=== PATIENT | male | born 1950 | race Hispanic/Latino ===

== ENCOUNTER 2018-03-14 14:09 | Day surgery (SDC) | payer MEDICARE ==
[2018-03-14 14:35] VITALS: BP 155/78
[2018-03-14 15:18] LABS: BASOPHILS % (AUTO) 0.9 % (0.0-5.0); EOSINOPHILS % (AUTO) 2.9 % (0.0-8.0); HEMATOCRIT 36.6 % (42-54); LYMPHOCYTES % (AUTO) 20.6 % (21.0-51.0); MEAN CORPUSCULAR HEMOGLOBIN 30.6 pg (27.0-33.0); MEAN CORPUSCULAR HGB CONC 33.8 g/dL (32.0-36.0); MEAN CORPUSCULAR VOLUME 90.5 fL (79-99); NEUTROPHILS % (AUTO) 66.6 % (40.0-77.0); PLATELET COUNT (AUTO) 108 K/uL (130-400); RED BLOOD CELL COUNT(AUTO) 4.04 MIL/uL (4.50-6.20); RED CELL DISTRIBUTION WIDTH 15.6 % (11.0-15.5); WHITE BLOOD COUNT (AUTO) 3.8 K/uL (4.8-10.8)
[2018-03-14 15:32] LABS: ALBUMIN 3.8 g/dL (3.5-5.0); BILIRUBIN,TOTAL 0.4 mg/dL (0.2-1.0); POTASSIUM 4.3 mmol/L (3.5-5.1); TOTAL PROTEIN, SERUM 7.4 g/dL (6.0-8.3)
[2018-03-14 15:37] LABS: CREATININE 11.2 mg/dL (0.5-1.5)
[2018-03-14 15:38] LABS: INR 0.95 (0.85-1.15)
[2018-03-14] MEDS ORDERED: HEPARIN SODIUM 1000UNIT/ML 10ML VIAL ONE (15:40)
[2018-03-14] MEDS ORDERED: SODIUM BICARB 50MEQ 50ML VIAL ONE (15:40)
[2018-03-14] MEDS ORDERED: ISOVUE-300 100 ML VIAL IV ONE (15:40)
[2018-03-14] MEDS ORDERED: LIDOCAINE HCL 2% 20ML ONE (15:40)
[2018-03-14] MEDS ORDERED: SODIUM CHLORIDE 0.9% 1000ML 1,000 ML IV ONE (15:58)
[2018-03-14] MEDS ORDERED: HYDRALAZINE HCL 20 MG/ML VIAL IV SCH (17:30)
[2018-03-14 17:35] VITALS: BP 179/64
[2018-03-14 17:50] VITALS: BP 167/72
[2018-03-14 18:05] VITALS: BP 168/77
[2018-03-14 18:15] VITALS: BP 165/69
== END 2018-03-14 18:35 | disposition home or self-care (01) ==
LOC: CLH 14:09 → DAH 14:09 → CLH 18:35
PROVIDERS: ATTEND Internal Medicine Nephrology
DX: T82.398A Other mechanical complication of other vascular grafts, initial encounter (principal); I12.0 Hypertensive chronic kidney disease with stage 5 chronic kidney disease or end stage renal disease; E11.22 Type 2 diabetes mellitus with diabetic chronic kidney disease; N18.6 End stage renal disease; E11.51 Type 2 diabetes mellitus with diabetic peripheral angiopathy without gangrene
CPT/HCPCS: 36415; 36905; 80053; 82948; 85025; 85610; A4606; C1725 ×2; C1757; C1769; C1894 ×2; J1644; J3490 ×2; J7030; Q9967

== ENCOUNTER 2018-06-27 09:07 | Emergency (ER) | payer MEDICARE ==
[2018-06-27 09:57] LABS: ALBUMIN 3.9 g/dL (3.5-5.0); BILIRUBIN,TOTAL 0.4 mg/dL (0.2-1.0); TOTAL PROTEIN, SERUM 8.1 g/dL (6.0-8.3)
[2018-06-27 09:59] LABS: CREATININE 12.1 mg/dL (0.5-1.5)
[2018-06-27 10:04] LABS: INR 0.95 (0.85-1.15); PARTIAL THROMBOPLASTIN TIME 27.4 SEC (26.3-35.5)
[2018-06-27] MEDS ORDERED: SODIUM POLYSTYRENE SULFONATE 15 GM/60 ML ML ONE (11:29)
[2018-06-27] MEDS ORDERED: CALCIUM GLUCONATE 1 GM/10 ML VIAL IV ONE (11:29)
[2018-06-27] MEDS ORDERED: SODIUM CHLORIDE 0.9% 50 ML IV ONE (11:30)
[2018-06-27] MEDS ORDERED: IODIXANOL 320 MG/ML 100 ML VIAL ONE (13:27)
[2018-06-27] MEDS ORDERED: HEPARIN SODIUM 1000UNIT/ML 10ML VIAL ONE (13:27)
[2018-06-27] MEDS ORDERED: LIDOCAINE HCL 1% MDV 50ML VIAL ONE (13:27)
[2018-06-27] MEDS ORDERED: FENTANYL CITRATE PF 50 MCG/1 ML 2ML VIAL ONE (14:07)
== END 2018-06-27 15:29 | disposition home or self-care (01) ==
LOC: EDH 09:07
DX: T82.49XA Other complication of vascular dialysis catheter, initial encounter (principal); N18.6 End stage renal disease; Y84.8 Other medical procedures as the cause of abnormal reaction of the patient, or of later complication, without mention of misadventure at the time of the procedure; Y92.89 Other specified places as the place of occurrence of the external cause
CPT/HCPCS: 36415; 36905; 80053; 84132; 85610; 85730; 96365; 99284; C1725; C1757 ×2; C1769 ×2; C1894 ×2; J0610; J1644 ×2; J3010; J3490; Q9967

== ENCOUNTER 2018-07-18 09:58 | Day surgery (SDC) | payer MEDICARE ==
[2018-07-18 10:52] LABS: BASOPHILS % (AUTO) 0.9 % (0.0-5.0); EOSINOPHILS % (AUTO) 2.5 % (0.0-8.0); HEMATOCRIT 31.7 % (42-54); LYMPHOCYTES % (AUTO) 19.8 % (21.0-51.0); MEAN CORPUSCULAR HEMOGLOBIN 31.8 pg (27.0-33.0); MEAN CORPUSCULAR HGB CONC 34.3 g/dL (32.0-36.0); MEAN CORPUSCULAR VOLUME 92.7 fL (79-99); NEUTROPHILS % (AUTO) 68.8 % (40.0-77.0); PLATELET COUNT (AUTO) 92 K/uL (130-400); RED BLOOD CELL COUNT(AUTO) 3.42 MIL/uL (4.50-6.20); RED CELL DISTRIBUTION WIDTH 14.1 % (11.0-15.5); WHITE BLOOD COUNT (AUTO) 3.8 K/uL (4.8-10.8)
[2018-07-18 11:00] LABS: PARTIAL THROMBOPLASTIN TIME 26.1 SEC (26.3-35.5); PROTHROMBIN TIME 10.5 SEC (9.6-11.6)
[2018-07-18 11:06] LABS: ALBUMIN 3.9 g/dL (3.5-5.0); BILIRUBIN,TOTAL 0.3 mg/dL (0.2-1.0); POTASSIUM 5.5 mmol/L (3.5-5.1); TOTAL PROTEIN, SERUM 7.5 g/dL (6.0-8.3)
[2018-07-18 11:08] LABS: CREATININE 12.4 mg/dL (0.5-1.5)
[2018-07-18] MEDS ORDERED: AMLO5TAB4 PO (13:47)
[2018-07-18] MEDS ORDERED: LOSA50TA25 PO (13:49)
[2018-07-18] MEDS ORDERED: CALC667C10 PO (13:49)
[2018-07-18] MEDS ORDERED: FOLI1TAB15 PO (13:49)
[2018-07-18] MEDS ORDERED: HEPARIN SODIUM 1000UNIT/ML 10ML VIAL ONE (16:17)
[2018-07-18] MEDS ORDERED: LIDOCAINE HCL 1% MDV 50ML VIAL ONE (16:17)
[2018-07-18] MEDS ORDERED: IOHEXOL 350 MG/ML 100ML INFUS..BTL IV ONE (16:39)
== END 2018-07-18 18:15 | disposition home or self-care (01) ==
LOC: EDH 09:58 → EDSTATUS 12:12 → DAH 12:13 → CLH 12:13
PROVIDERS: ATTEND Internal Medicine Nephrology
DX: T82.399A Other mechanical complication of unspecified vascular grafts, initial encounter (principal); I12.0 Hypertensive chronic kidney disease with stage 5 chronic kidney disease or end stage renal disease; E11.22 Type 2 diabetes mellitus with diabetic chronic kidney disease; N18.6 End stage renal disease
CPT/HCPCS: 36415; 36905; 80053; 85025; 85610; 85730; 93005; C1725; C1757; C1769 ×2; C1894 ×2; J1644 ×2; J3490; Q9965; Q9967

== ENCOUNTER 2021-06-11 09:17 | Inpatient (IN) | payer MEDICARE ==
[2021-06-11] VITALS (14 sets, daily range): BP systolic 127–175; BP diastolic 33–79
[~2021-06-11] VITALS: Ht 175.3 cm; Wt 61.7 kg
[~2021-06-11 09:17] MED LIST: AMLO5TAB4 PO; CALC667C10 PO; FOLI1TAB15 PO; LOSA50TA64 PO
[2021-06-11 09:52] LABS: BASOPHILS % (AUTO) 0.2 % (0.0-5.0); EOSINOPHILS % (AUTO) 2.1 % (0.0-8.0); HEMATOCRIT 37.4 % (42-54); LYMPHOCYTES % (AUTO) 3.4 % (21.0-51.0); MEAN CORPUSCULAR HEMOGLOBIN 31.7 pg (27.0-33.0); MEAN CORPUSCULAR HGB CONC 33.2 g/dL (32.0-36.0); MEAN CORPUSCULAR VOLUME 95.7 fL (79-99); MONOCYTES % (AUTO) 7.9 % (3.0-13.0); NEUTROPHILS % (AUTO) 79.5 % (40.0-77.0); PLATELET COUNT (AUTO) 73 K/uL (130-400); RED BLOOD CELL COUNT(AUTO) 3.91 MIL/uL (4.50-6.20); RED CELL DISTRIBUTION WIDTH 13.6 % (11.0-15.5); WHITE BLOOD COUNT (AUTO) 11.3 K/uL (4.8-10.8)
[2021-06-11] MEDS ORDERED: 0.9% NACL 500ML IV.SOLN 500 ML IV ONE (10:00)
[2021-06-11 10:06] LABS: INR 1.13 (0.85-1.15); PROTHROMBIN TIME 12.2 SEC (9.6-11.6)
[2021-06-11 10:07] LABS: PARTIAL THROMBOPLASTIN TIME 29.4 SEC (26.3-35.5)
[2021-06-11] MEDS: 0.9% NACL 500ML IV.SOLN 500 ML IV SCH ×2 (10:16→10:52)
[2021-06-11 10:49] LABS: ALBUMIN 3.7 g/dL (3.5-5.0); BILIRUBIN,TOTAL 1.1 mg/dL (0.2-1.0); POTASSIUM 4.8 mmol/L (3.5-5.1); TOTAL PROTEIN, SERUM 8.3 g/dL (6.0-8.3)
[2021-06-11 10:56] LABS: CREATININE 9.2 mg/dL (0.5-1.5)
[2021-06-11] MEDS ORDERED: ASPIRIN 81MG CHEW TAB PO SCH (12:30)
[2021-06-11] MEDS ORDERED: PHENYLEPHRINE HCL 10 MG/ML 1ML VIAL IV ONE (12:32)
[2021-06-11] MEDS ORDERED: MAGNESIUM SULFATE 1 GM/2 ML VIAL IM ONE (12:32)
[2021-06-11] MEDS ORDERED: MANNITOL 25% 50ML VIAL IV ONE (12:32)
[2021-06-11] MEDS ORDERED: SODIUM BICARB 8.4% 50ML SYRINGE IVP ONE (12:32)
[2021-06-11] MEDS ORDERED: CACL 1GM SYG IVP ONE (12:32)
[2021-06-11] MEDS ORDERED: AMINOCAPROIC ACID 5,000MG VIAL IV ONE (12:32)
[2021-06-11] MEDS ORDERED: HEPARIN 10,000 UNIT/10ML (1,000 UNIT/ML) VIAL IV ONE (12:32)
[2021-06-11] MEDS ORDERED: AMLODIPINE 5 MG TAB PO ONE (15:30)
[2021-06-11] MEDS ORDERED: CLOPIDOGREL 300MG TAB PO SCH (16:30)
[2021-06-11] MEDS ORDERED: ATOR10 PO (16:35)
[2021-06-11] MEDS ORDERED: SEVE800T27 PO (16:35)
[2021-06-11] MEDS ORDERED: ISOS30TA92 PO (16:35)
[2021-06-11] MEDS ORDERED: CARV25TA PO (16:35)
[2021-06-11] MEDS ORDERED: PHARMACY COMMUNICATION MISC SCH (17:00)
[2021-06-11] MEDS ORDERED: CEFTRIAXONE 1G VIAL IVP SCH (17:30)
[2021-06-11] MEDS ORDERED: FOLI0.8T3 PO (22:31)
[2021-06-11] MEDS ORDERED: LOSA50TA64 PO (22:31)
[2021-06-12] MEDS ORDERED: SEVE800T27 PO (01:00)
[2021-06-12 04:00] VITALS: BP 131/68
[2021-06-12 08:00] VITALS: BP 143/64
[2021-06-12] MEDS: AMLODIPINE 5 MG TAB PO SCH (08:51)
[2021-06-12] MEDS: CLOPIDOGREL 75MG TAB PO SCH (08:52)
[2021-06-12] MEDS: CEFTRIAXONE 1G VIAL IVP SCH (08:52)
[2021-06-12 09:20] LABS: BASOPHILS % (AUTO) 0.2 % (0.0-5.0); EOSINOPHILS % (AUTO) 0.5 % (0.0-8.0); HEMATOCRIT 37.4 % (42-54); LYMPHOCYTES % (AUTO) 2.4 % (21.0-51.0); MEAN CORPUSCULAR HEMOGLOBIN 31.2 pg (27.0-33.0); MEAN CORPUSCULAR HGB CONC 33.2 g/dL (32.0-36.0); MEAN CORPUSCULAR VOLUME 94.2 fL (79-99); MONOCYTES % (AUTO) 5.2 % (3.0-13.0); NEUTROPHILS % (AUTO) 89.9 % (40.0-77.0); PLATELET COUNT (AUTO) 86 K/uL (130-400); RED BLOOD CELL COUNT(AUTO) 3.97 MIL/uL (4.50-6.20); RED CELL DISTRIBUTION WIDTH 13.4 % (11.0-15.5); WHITE BLOOD COUNT (AUTO) 10.3 K/uL (4.8-10.8)
[2021-06-12 09:36] LABS: ALBUMIN 2.7 g/dL (3.5-5.0); BILIRUBIN,TOTAL 0.5 mg/dL (0.2-1.0); MAGNESIUM 2.6 mg/dL (1.80-2.40); POTASSIUM 4.8 mmol/L (3.5-5.1); TOTAL PROTEIN, SERUM 6.9 g/dL (6.0-8.3)
[2021-06-12 09:38] LABS: CREATININE 10.5 mg/dL (0.5-1.5)
[2021-06-12] MEDS: ASPIRIN 81 MG EC TAB PO SCH (10:12)
[2021-06-12 12:00] VITALS: BP 110/67
[2021-06-12] MEDS ORDERED: LOSARTAN 25 MG TABLET PO SCH (12:22)
[2021-06-12] MEDS: ENOXAPARIN SODIUM 60 MG/0.6 ML SQ SCH (12:48)
[2021-06-12] MEDS: CARVEDILOL 3.125 MG TABLET PO SCH ×2 (12:48→20:00)
[2021-06-12 16:00] VITALS: BP 138/58
[2021-06-12 20:00] VITALS: BP 102/43
[2021-06-13] VITALS (7 sets, daily range): BP systolic 100–151; BP diastolic 54–106
[2021-06-13 04:04] LABS: HEMATOCRIT 34.2 % (42-54); MEAN CORPUSCULAR HEMOGLOBIN 31.2 pg (27.0-33.0); MEAN CORPUSCULAR HGB CONC 33.3 g/dL (32.0-36.0); MEAN CORPUSCULAR VOLUME 93.7 fL (79-99); PLATELET COUNT (AUTO) 91 K/uL (130-400); RED BLOOD CELL COUNT(AUTO) 3.65 MIL/uL (4.50-6.20); RED CELL DISTRIBUTION WIDTH 13.3 % (11.0-15.5); WHITE BLOOD COUNT (AUTO) 10.6 K/uL (4.8-10.8)
[2021-06-13 04:21] LABS: ALBUMIN 2.8 g/dL (3.5-5.0); BILIRUBIN,TOTAL 0.5 mg/dL (0.2-1.0); PHOSPHORUS 4.8 mg/dL (2.5-4.9); POTASSIUM 4.7 mmol/L (3.5-5.1); TOTAL PROTEIN, SERUM 6.8 g/dL (6.0-8.3)
[2021-06-13 04:29] LABS: BAND NEUTROPHILS % (MANUAL) 1 % (0-2); MONOCYTES % (MANUAL) 2 % (2-9); SEGMENTED NEUTROPHILS % 97 % (40-70)
[2021-06-13 04:30] LABS: MAN.DIFF COMMENT-IMPRESSION MANUAL DIFFERENTIAL
[2021-06-13 04:51] LABS: CREATININE 11.2 mg/dL (0.5-1.5)
[2021-06-13] MEDS ORDERED: ATORVASTATIN 20 MG TABLET PO SCH (09:00)
[2021-06-13] MEDS ORDERED: CARVEDILOL 3.125 MG TABLET PO SCH (09:00)
[2021-06-13] MEDS ORDERED: REGADENOSON 0.4 MG/5 ML PF SYG IVP SCH (10:00)
[2021-06-13] MEDS: CEFTRIAXONE 1G VIAL IVP SCH (13:23)
[2021-06-13] MEDS: ENOXAPARIN SODIUM 60 MG/0.6 ML SQ SCH (13:25)
[2021-06-13] MEDS: AMLODIPINE 5 MG TAB PO SCH (13:27)
[2021-06-13] MEDS: LOSARTAN 25 MG TABLET PO SCH (13:28)
[2021-06-13] MEDS: ISOSORBIDE MONO 30MG SR TAB PO SCH (13:28)
[2021-06-13] MEDS: ASPIRIN 81 MG EC TAB PO SCH (13:28)
[2021-06-13] MEDS: CLOPIDOGREL 75MG TAB PO SCH (13:28)
[2021-06-13] MEDS ORDERED: CARVEDILOL 25 MG TABLET PO SCH (14:00)
[2021-06-13] MEDS: CARVEDILOL 25 MG TABLET PO SCH (19:37)
[2021-06-14] VITALS (18 sets, daily range): BP systolic 107–159; BP diastolic 44–99
[2021-06-14] MEDS ORDERED: MORPHINE 2 MG SYG ONE (03:24)
[2021-06-14] MEDS ORDERED: MORPHINE 2 MG SYG IVP ONE (03:30)
[2021-06-14 04:13] LABS: HEMATOCRIT 31.3 % (42-54); MEAN CORPUSCULAR HGB CONC 33.2 g/dL (32.0-36.0); MEAN CORPUSCULAR VOLUME 93.4 fL (79-99); PLATELET COUNT (AUTO) 97 K/uL (130-400); RED BLOOD CELL COUNT(AUTO) 3.35 MIL/uL (4.50-6.20); RED CELL DISTRIBUTION WIDTH 13.4 % (11.0-15.5); WHITE BLOOD COUNT (AUTO) 9.7 K/uL (4.8-10.8)
[2021-06-14 04:25] LABS: ALBUMIN 2.7 g/dL (3.5-5.0); BILIRUBIN,TOTAL 0.5 mg/dL (0.2-1.0); POTASSIUM 4.8 mmol/L (3.5-5.1); TOTAL PROTEIN, SERUM 6.6 g/dL (6.0-8.3)
[2021-06-14 04:27] LABS: CREATININE 12.9 mg/dL (0.5-1.5)
[2021-06-14 05:36] LABS: BAND NEUTROPHILS % (MANUAL) 1 % (0-2); EOSINOPHILS % (MANUAL) 1 % (1-6); LYMPHOCYTES % (MANUAL) 1 % (22-44); MAN.DIFF COMMENT-IMPRESSION MANUAL DIFFERENTIAL; MONOCYTES % (MANUAL) 4 % (2-9); SEGMENTED NEUTROPHILS % 93 % (40-70)
[2021-06-14] MEDS ORDERED: 0.9% NACL 500ML IV.SOLN 500 ML IV SCH (08:00)
[2021-06-14] MEDS: CLOPIDOGREL 75MG TAB PO SCH (08:28)
[2021-06-14] MEDS: ASPIRIN 81 MG EC TAB PO SCH (08:28)
[2021-06-14] MEDS: ISOSORBIDE MONO 30MG SR TAB PO SCH (08:28)
[2021-06-14] MEDS: AMLODIPINE 5 MG TAB PO SCH (08:28)
[2021-06-14] MEDS: LOSARTAN 25 MG TABLET PO SCH (08:30)
[2021-06-14] MEDS: CARVEDILOL 25 MG TABLET PO SCH ×2 (08:30→19:54)
[2021-06-14] MEDS: CEFTRIAXONE 1G VIAL IVP SCH (08:30)
[2021-06-14] MEDS: ENOXAPARIN SODIUM 60 MG/0.6 ML SQ SCH (08:31)
[2021-06-14] MEDS ORDERED: HEPARIN 5,000 UNIT VIAL SQ PRN (15:30)
[2021-06-14] MEDS: 0.9%NACL 1000ML 1,000 ML IV PRN (15:51)
[2021-06-14] MEDS: ATORVASTATIN 20 MG TABLET PO SCH (19:54)
[2021-06-15] VITALS (12 sets, daily range): BP systolic 96–154; BP diastolic 49–77
[2021-06-15] MEDS: TRAZODONE HCL 50 MG TAB ONE ×2 (00:20→00:22)
[2021-06-15] MEDS ORDERED: TRAZODONE HCL 50 MG TAB PO ONE (00:30)
[2021-06-15 04:02] LABS: BASOPHILS % (AUTO) 0.2 % (0.0-5.0); EOSINOPHILS % (AUTO) 1.3 % (0.0-8.0); HEMATOCRIT 32.6 % (42-54); LYMPHOCYTES % (AUTO) 3.3 % (21.0-51.0); MEAN CORPUSCULAR HEMOGLOBIN 30.9 pg (27.0-33.0); MEAN CORPUSCULAR HGB CONC 33.1 g/dL (32.0-36.0); MEAN CORPUSCULAR VOLUME 93.1 fL (79-99); MONOCYTES % (AUTO) 6.3 % (3.0-13.0); NEUTROPHILS % (AUTO) 88.1 % (40.0-77.0); PLATELET COUNT (AUTO) 109 K/uL (130-400); RED CELL DISTRIBUTION WIDTH 13.3 % (11.0-15.5); WHITE BLOOD COUNT (AUTO) 9.2 K/uL (4.8-10.8)
[2021-06-15 04:11] LABS: INR 1.12 (0.85-1.15); PROTHROMBIN TIME 12.1 SEC (9.6-11.6)
[2021-06-15 04:22] LABS: PHOSPHORUS 4.3 mg/dL (2.5-4.9); POTASSIUM 4.2 mmol/L (3.5-5.1)
[2021-06-15 04:51] LABS: CREATININE 8.2 mg/dL (0.5-1.5)
[2021-06-15] MEDS: ASPIRIN 81 MG EC TAB PO SCH ×2 (09:00→16:16)
[2021-06-15] MEDS: ENOXAPARIN SODIUM 60 MG/0.6 ML SQ SCH (09:00)
[2021-06-15] MEDS: CLOPIDOGREL 75MG TAB PO SCH (09:00)
[2021-06-15] MEDS: AMLODIPINE 5 MG TAB PO SCH ×2 (09:00→16:15)
[2021-06-15] MEDS: ISOSORBIDE MONO 30MG SR TAB PO SCH ×2 (09:00→16:16)
[2021-06-15] MEDS: LOSARTAN 25 MG TABLET PO SCH ×2 (09:00→16:16)
[2021-06-15] MEDS: CEFTRIAXONE 1G VIAL IVP SCH (09:48)
[2021-06-15] MEDS: CARVEDILOL 25 MG TABLET PO SCH ×2 (09:49→20:18)
[2021-06-15] MEDS ORDERED: LIDOCAINE HCL 400MG/20ML VIAL ONE (10:32)
[2021-06-15] MEDS ORDERED: IOHEXOL-350 50ML VIAL IV ONE (10:32)
[2021-06-15] MEDS ORDERED: IOHEXOL 350 MG/ML 100ML INFUS..BTL IV ONE (10:32)
[2021-06-15] MEDS ORDERED: MORPHINE 4 MG SYG ONE (10:59)
[2021-06-15] MEDS ORDERED: HEPARIN 10,000 UNIT/10ML (1,000 UNIT/ML) VIAL ONE (11:02)
[2021-06-15] MEDS ORDERED: ONDANSETRON 4MG INJ ONE (11:07)
[2021-06-15] MEDS: ATORVASTATIN 20 MG TABLET PO SCH (20:18)
[2021-06-16] VITALS (19 sets, daily range): BP systolic 118–157; BP diastolic 46–70
[2021-06-16 04:51] LABS: HEMATOCRIT 34.4 % (42-54); MEAN CORPUSCULAR HEMOGLOBIN 30.9 pg (27.0-33.0); MEAN CORPUSCULAR HGB CONC 33.1 g/dL (32.0-36.0); MEAN CORPUSCULAR VOLUME 93.2 fL (79-99); PLATELET COUNT (AUTO) 119 K/uL (130-400); RED BLOOD CELL COUNT(AUTO) 3.69 MIL/uL (4.50-6.20); RED CELL DISTRIBUTION WIDTH 13.3 % (11.0-15.5); WHITE BLOOD COUNT (AUTO) 8.9 K/uL (4.8-10.8)
[2021-06-16 05:07] LABS: POTASSIUM 4.7 mmol/L (3.5-5.1)
[2021-06-16 05:08] LABS: PHOSPHORUS 6.8 mg/dL (2.5-4.9)
[2021-06-16 05:16] LABS: CREATININE 10.3 mg/dL (0.5-1.5)
[2021-06-16 05:52] LABS: BAND NEUTROPHILS % (MANUAL) 3 % (0-2); BASOPHILS % (MANUAL) 1 % (0-2); LYMPHOCYTES % (MANUAL) 4 % (22-44); MAN.DIFF COMMENT-IMPRESSION MANUAL DIFFERENTIAL; MONOCYTES % (MANUAL) 4 % (2-9); SEGMENTED NEUTROPHILS % 88 % (40-70)
[2021-06-16 06:12] LABS: HEPATITIS Bs ANTIGEN SCREEN P Negative (Negative)
[2021-06-16] MEDS: ENOXAPARIN SODIUM 30 MG/0.3 ML SQ SCH (09:00)
[2021-06-16] MEDS: CARVEDILOL 25 MG TABLET PO SCH ×2 (09:00→20:26)
[2021-06-16] MEDS: ATORVASTATIN 20 MG TABLET PO SCH (20:23)
[2021-06-17] VITALS: BP 137/63
[2021-06-17 04:00] VITALS: BP 159/70
[2021-06-17 07:08] LABS: POTASSIUM 4.4 mmol/L (3.5-5.1)
[2021-06-17 07:15] LABS: CREATININE 7.9 mg/dL (0.5-1.5)
[2021-06-17 07:40] VITALS: BP 153/74
[2021-06-17] MEDS: AMLODIPINE 5 MG TAB PO SCH (08:57)
[2021-06-17] MEDS: ASPIRIN 81 MG EC TAB PO SCH (08:57)
[2021-06-17] MEDS: LOSARTAN 25 MG TABLET PO SCH (08:58)
[2021-06-17] MEDS: CARVEDILOL 25 MG TABLET PO SCH ×2 (08:58→22:09)
[2021-06-17] MEDS: ISOSORBIDE MONO 30MG SR TAB PO SCH (08:58)
[2021-06-17] MEDS: ENOXAPARIN SODIUM 30 MG/0.3 ML SQ SCH (08:59)
[2021-06-17 12:16] VITALS: BP 138/68
[2021-06-17 16:56] VITALS: BP 130/77
[2021-06-17 20:00] VITALS: BP 133/68
[2021-06-17] MEDS: ATORVASTATIN 20 MG TABLET PO SCH (22:09)
[2021-06-18] VITALS (7 sets, daily range): BP systolic 125–150; BP diastolic 53–108
[2021-06-18 04:32] LABS: HEMATOCRIT 31.8 % (42-54); MEAN CORPUSCULAR HEMOGLOBIN 31.1 pg (27.0-33.0); MEAN CORPUSCULAR HGB CONC 33.3 g/dL (32.0-36.0); MEAN CORPUSCULAR VOLUME 93.3 fL (79-99); PLATELET COUNT (AUTO) 122 K/uL (130-400); RED BLOOD CELL COUNT(AUTO) 3.41 MIL/uL (4.50-6.20); RED CELL DISTRIBUTION WIDTH 13.2 % (11.0-15.5); WHITE BLOOD COUNT (AUTO) 10.6 K/uL (4.8-10.8)
[2021-06-18 04:55] LABS: POTASSIUM 4.2 mmol/L (3.5-5.1)
[2021-06-18 05:11] LABS: CREATININE 9.5 mg/dL (0.5-1.5); LYMPHOCYTES % (MANUAL) 13 % (22-44); MAN.DIFF COMMENT-IMPRESSION MANUAL DIFFERENTIAL; MONOCYTES % (MANUAL) 5 % (2-9); SEGMENTED NEUTROPHILS % 82 % (40-70)
[2021-06-18] MEDS: LOSARTAN 25 MG TABLET PO SCH (08:53)
[2021-06-18] MEDS: ASPIRIN 81 MG EC TAB PO SCH (08:53)
[2021-06-18] MEDS: CARVEDILOL 25 MG TABLET PO SCH ×2 (08:54→22:12)
[2021-06-18] MEDS: ENOXAPARIN SODIUM 30 MG/0.3 ML SQ SCH (08:54)
[2021-06-18] MEDS: ISOSORBIDE MONO 30MG SR TAB PO SCH (08:54)
[2021-06-18] MEDS: AMLODIPINE 5 MG TAB PO SCH (08:54)
[2021-06-18] MEDS: ATORVASTATIN 20 MG TABLET PO SCH (22:00)
[2021-06-19] VITALS (17 sets, daily range): BP systolic 119–176; BP diastolic 48–84
[2021-06-19 04:02] LABS: BASOPHILS % (AUTO) 0.2 % (0.0-5.0); EOSINOPHILS % (AUTO) 0.9 % (0.0-8.0); HEMATOCRIT 30.7 % (42-54); LYMPHOCYTES % (AUTO) 3.4 % (21.0-51.0); MEAN CORPUSCULAR HEMOGLOBIN 31.5 pg (27.0-33.0); MEAN CORPUSCULAR HGB CONC 33.9 g/dL (32.0-36.0); MONOCYTES % (AUTO) 5.2 % (3.0-13.0); NEUTROPHILS % (AUTO) 89.5 % (40.0-77.0); PLATELET COUNT (AUTO) 126 K/uL (130-400); RED CELL DISTRIBUTION WIDTH 13.2 % (11.0-15.5); WHITE BLOOD COUNT (AUTO) 11.4 K/uL (4.8-10.8)
[2021-06-19 04:16] LABS: POTASSIUM 4.7 mmol/L (3.5-5.1)
[2021-06-19 04:31] LABS: INR 1.16 (0.85-1.15); PROTHROMBIN TIME 12.5 SEC (9.6-11.6)
[2021-06-19 04:33] LABS: PARTIAL THROMBOPLASTIN TIME 34.8 SEC (26.3-35.5)
[2021-06-19] MEDS: ISOSORBIDE MONO 30MG SR TAB PO SCH (09:00)
[2021-06-19] MEDS: AMLODIPINE 5 MG TAB PO SCH (09:00)
[2021-06-19] MEDS: ASPIRIN 81 MG EC TAB PO SCH (09:00)
[2021-06-19] MEDS: LOSARTAN 25 MG TABLET PO SCH (09:00)
[2021-06-19] MEDS: CARVEDILOL 25 MG TABLET PO SCH (09:16)
[2021-06-19] MEDS ORDERED: CEFAZOLIN SODIUM 1 GM VIAL ONE ×2 (09:37→17:01)
[2021-06-19] MEDS ORDERED: PAPAVERINE HCL 30 MG/ML 2ML VIAL ONE (09:38)
[2021-06-19] MEDS ORDERED: NITROGLYCERIN 50MG/D5W 250ML 1 BOT ONE (09:49)
[2021-06-19] MEDS ORDERED: NOREPINEPHRINE BITARTRATE 8 MG in DEXTROSE 5%-WATER 250 ML IV PRN (10:00)
[2021-06-19] MEDS ORDERED: AMINOCAPROIC ACID 5,000MG VIAL 15,000 MG in 0.9% NACL 500ML IV.SOLN 420 ML IV PRN (10:00)
[2021-06-19] MEDS ORDERED: CEFAZOLIN SODIUM 1 GM VIAL IVP PRN (11:00)
[2021-06-19] MEDS ORDERED: HEPARIN 10,000 UNIT/10ML (1,000 UNIT/ML) VIAL ONE ×2 (15:00→15:54)
[2021-06-19] MEDS ORDERED: FENTANYL CITRATE PF 50 MCG/1 ML 20ML VIAL IJ ONE (15:54)
[2021-06-19] MEDS ORDERED: PROPOFOL 10 MG/ML 20ML VIAL IV ONE (15:54)
[2021-06-19] MEDS ORDERED: EPINEPHRINE PF 1MG AMP ONE (15:54)
[2021-06-19] MEDS ORDERED: ESMOLOL HCL 10 MG/ML 10 ML VIAL ONE (15:54)
[2021-06-19] MEDS ORDERED: PROTAMINE SULFATE 10 MG/ML 25ML VIAL IV ONE (15:54)
[2021-06-19] MEDS ORDERED: AMINOCAPROIC ACID 5,000MG VIAL ONE (15:54)
[2021-06-19] MEDS ORDERED: LIDOCAINE PF 100MG/5ML (2%) SYRINGE 5ML ONE ×2 (15:54→15:55)
[2021-06-19] MEDS ORDERED: NOREPINEPHRINE BITARTRATE 1 MG/1 ML ML IV ONE (15:54)
[2021-06-19] MEDS ORDERED: ROCURONIUM 10MG/1ML SYR 10 MG/ML ML ONE (15:54)
[2021-06-19] MEDS ORDERED: ETOMIDATE 20MG VIAL ONE (15:55)
[2021-06-19 17:06] LABS: ABG BASE EXCESS -9.2 mmol/L (-2.0-3.0); ABG HCO3 17.5 mmol/L (21.0-28.0); ABG OXYGEN SATURATION 99.6 % (95.0-99.0); ABG PCO2 41 mmHg (35-48)
[2021-06-19] MEDS ORDERED: SODIUM BICARB 8.4% 50ML SYRINGE ONE (17:18)
[2021-06-19] MEDS ORDERED: SODIUM BICARB 50MEQ 50ML VIAL 200 ML ONE (17:19)
[2021-06-19 17:52] LABS: ABG BASE EXCESS -0.8 mmol/L (-2.0-3.0); ABG HCO3 23.8 mmol/L (21.0-28.0); ABG OXYGEN SATURATION 99.3 % (95.0-99.0); ABG PCO2 39 mmHg (35-48)
[2021-06-19] MEDS ORDERED: VASOPRESSIN 20 UNITS/ML 1ML VIAL ONE (17:53)
[2021-06-19] MEDS ORDERED: AMIODARONE 150MG VIAL ONE (18:10)
[2021-06-19 18:13] LABS: ABG BASE EXCESS 5.9 mmol/L (-2.0-3.0); ABG HCO3 30.6 mmol/L (21.0-28.0); ABG OXYGEN SATURATION 99.3 % (95.0-99.0); ABG PCO2 45 mmHg (35-48)
[2021-06-19] MEDS ORDERED: DEXTROSE 50%-WATER 50 ML DISP.SYRIN IV ONE (18:15)
[2021-06-19 18:37] LABS: ABG BASE EXCESS 2.8 mmol/L (-2.0-3.0); ABG HCO3 26.3 mmol/L (21.0-28.0); ABG OXYGEN SATURATION 99.3 % (95.0-99.0); ABG PCO2 36 mmHg (35-48)
[2021-06-19 19:01] LABS: ABG BASE EXCESS 3.8 mmol/L (-2.0-3.0); ABG HCO3 25.6 mmol/L (21.0-28.0); ABG OXYGEN SATURATION 98.9 % (95.0-99.0); ABG PCO2 28 mmHg (35-48)
[2021-06-19 19:30] LABS: ABG BASE EXCESS 3.1 mmol/L (-2.0-3.0); ABG HCO3 25.4 mmol/L (21.0-28.0); ABG OXYGEN SATURATION 98.8 % (95.0-99.0); ABG PCO2 31 mmHg (35-48)
[2021-06-19 19:46] LABS: ABG BASE EXCESS 1.5 mmol/L (-2.0-3.0); ABG HCO3 24.7 mmol/L (21.0-28.0); ABG OXYGEN SATURATION 98.9 % (95.0-99.0); ABG PCO2 34 mmHg (35-48)
[2021-06-19] MEDS ORDERED: EPINEPHRINE PF 1MG AMP 10 MG in DEXTROSE 5%-WATER 250 ML IV PRN (20:00)
[2021-06-19] MEDS ORDERED: 0.9%NACL 1000ML 1,000 ML IV SCH (20:00)
[2021-06-19] MEDS ORDERED: AMINOCAPROIC ACID 5,000MG VIAL 15,000 MG in 0.9% NACL 250ML 250 ML IV SCH (20:00)
[2021-06-19] MEDS ORDERED: INSULIN REGULAR, HUMAN 3ML 100 UNIT in 0.9%NACL 100ML 99 ML IV SCH ×2 (20:00)
[2021-06-19] MEDS ORDERED: NOREPINEPHRINE 4MG/NS 250ML 250 ML IV PRN (20:00)
[2021-06-19] MEDS ORDERED: ONDANSETRON 4MG INJ IV PRN (20:00)
[2021-06-19] MEDS ORDERED: ACETAMINOPHEN 650 MG SUPPOSITORY RC PRN (20:00)
[2021-06-19] MEDS ORDERED: MORPHINE 2 MG SYG IV PRN ×2 (20:00)
[2021-06-19] MEDS ORDERED: ALBUMIN (HUMAN) 5% 250 ML IV PRN (20:00)
[2021-06-19] MEDS ORDERED: POTASSIUM CHLORIDE 20MEQ/100ML 100 ML IV PRN (20:00)
[2021-06-19] MEDS ORDERED: POTASSIUM PHOS 15 mMOL+NS250ML 250 ML IV PRN (20:00)
[2021-06-19] MEDS ORDERED: PROPOFOL 1000 MG/100 ML 100 ML IV PRN (20:00)
[2021-06-19] MEDS ORDERED: ACETAMINOPHEN 325 MG TAB PO PRN (20:00)
[2021-06-19] MEDS ORDERED: NITROGLYCERIN 50MG/D5W 250ML 250 BOT IV SCH (20:00)
[2021-06-19] MEDS ORDERED: MAGNESIUM 2GM PREMIX 50ML 50 ML IV PRN (20:00)
[2021-06-19] MEDS ORDERED: 0.9% NACL 500ML IV.SOLN 500 ML IV SCH (20:00)
[2021-06-19] MEDS ORDERED: DEXTROSE 50%-WATER 50 ML DISP.SYRIN IV PRN (20:00)
[2021-06-19] MEDS ORDERED: GLUCAGON 1MG KIT 1 MG ML IM PRN (20:00)
[2021-06-19] MEDS ORDERED: TRAMADOL HCL 50 MG TABLET PO PRN (20:00)
[2021-06-19] MEDS ORDERED: ATROPINE 1MG SYG IVP ONE (20:26)
[2021-06-19] MEDS ORDERED: ASPIRIN 81MG CHEW TAB NG ONE (21:00)
[2021-06-19] MEDS: ATORVASTATIN 20 MG TABLET PO SCH (21:00)
[2021-06-19 21:29] LABS: ABG BASE EXCESS -1.9 mmol/L (-2.0-3.0); ABG HCO3 21.9 mmol/L (21.0-28.0); ABG OXYGEN SATURATION 98.7 % (95.0-99.0); ABG PCO2 34 mmHg (35-48)
[2021-06-19 21:31] LABS: MEAN CORPUSCULAR HEMOGLOBIN 30.5 pg (27.0-33.0); MEAN CORPUSCULAR HGB CONC 34.2 g/dL (32.0-36.0); MEAN CORPUSCULAR VOLUME 89.1 fL (79-99); RED BLOOD CELL COUNT(AUTO) 3.48 MIL/uL (4.50-6.20); RED CELL DISTRIBUTION WIDTH 14.8 % (11.0-15.5); WHITE BLOOD COUNT (AUTO) 18.5 K/uL (4.8-10.8)
[2021-06-19 21:46] LABS: INR 1.4 (0.85-1.15); PROTHROMBIN TIME 14.8 SEC (9.6-11.6)
[2021-06-19 21:48] LABS: MAGNESIUM 2.6 mg/dL (1.80-2.40); PARTIAL THROMBOPLASTIN TIME 32.8 SEC (26.3-35.5); PHOSPHORUS 6.9 mg/dL (2.5-4.9)
[2021-06-19 21:51] LABS: CREATININE 9.6 mg/dL (0.5-1.5)
[2021-06-19 22:23] LABS: ABG BASE EXCESS 0.7 mmol/L (-2.0-3.0); ABG HCO3 23.5 mmol/L (21.0-28.0); ABG OXYGEN SATURATION 98.5 % (95.0-99.0); ABG PCO2 32 mmHg (35-48)
[2021-06-19 23:09] LABS: ABG BASE EXCESS -0.4 mmol/L (-2.0-3.0); ABG HCO3 23.1 mmol/L (21.0-28.0); ABG OXYGEN SATURATION 98.7 % (95.0-99.0); ABG PCO2 34 mmHg (35-48)
[2021-06-19] MEDS: CALCIUM GLUC 1GM 1 GM in 0.9%NACL 50ML 50 ML IV PRN ×2 (23:27→23:31)
[2021-06-19] MEDS: SODIUM BICARB 50MEQ 50ML VIAL IV PRN ×2 (23:29→23:31)
[2021-06-19] MEDS: 0.9%NACL 10ML VIAL IVP PRN (23:29)
[2021-06-20] VITALS (50 sets, daily range): BP systolic 90–159; BP diastolic 43–64
[2021-06-20 00:19] LABS: ABG BASE EXCESS 0.3 mmol/L (-2.0-3.0); ABG HCO3 23.3 mmol/L (21.0-28.0); ABG OXYGEN SATURATION 98.3 % (95.0-99.0); ABG PCO2 32 mmHg (35-48)
[2021-06-20] MEDS: CALCIUM GLUC 1GM 1 GM in 0.9%NACL 50ML 50 ML IV PRN ×3 (00:23→21:13)
[2021-06-20] MEDS: CEFAZOLIN SODIUM 1 GM VIAL IV SCH ×3 (00:57→16:34)
[2021-06-20] MEDS ORDERED: PROPOFOL 1000 MG/100 ML IV PRN (01:00)
[2021-06-20 01:08] LABS: ABG HCO3 26.6 mmol/L (21.0-28.0); ABG OXYGEN SATURATION 98.2 % (95.0-99.0); ABG PCO2 42 mmHg (35-48)
[2021-06-20 02:11] LABS: ABG BASE EXCESS 2.9 mmol/L (-2.0-3.0); ABG HCO3 27.5 mmol/L (21.0-28.0); ABG OXYGEN SATURATION 98.2 % (95.0-99.0); ABG PCO2 42 mmHg (35-48)
[2021-06-20 03:11] LABS: ABG HCO3 26.5 mmol/L (21.0-28.0); ABG OXYGEN SATURATION 98.4 % (95.0-99.0); ABG PCO2 37 mmHg (35-48)
[2021-06-20 04:08] LABS: ABG BASE EXCESS 1.5 mmol/L (-2.0-3.0); ABG HCO3 26.3 mmol/L (21.0-28.0); ABG OXYGEN SATURATION 98.1 % (95.0-99.0); ABG PCO2 43 mmHg (35-48)
[2021-06-20 04:42] LABS: HEMATOCRIT 30.3 % (42-54); MEAN CORPUSCULAR HEMOGLOBIN 30.3 pg (27.0-33.0); MEAN CORPUSCULAR HGB CONC 33.7 g/dL (32.0-36.0); MEAN CORPUSCULAR VOLUME 89.9 fL (79-99); PLATELET COUNT (AUTO) 151 K/uL (130-400); RED BLOOD CELL COUNT(AUTO) 3.37 MIL/uL (4.50-6.20); RED CELL DISTRIBUTION WIDTH 15.4 % (11.0-15.5); WHITE BLOOD COUNT (AUTO) 16.2 K/uL (4.8-10.8)
[2021-06-20 04:55] LABS: INR 1.32 (0.85-1.15)
[2021-06-20 04:57] LABS: PARTIAL THROMBOPLASTIN TIME 30.8 SEC (26.3-35.5)
[2021-06-20 05:03] LABS: BAND NEUTROPHILS % (MANUAL) 5 % (0-2); LYMPHOCYTES % (MANUAL) 2 % (22-44); MAN.DIFF COMMENT-IMPRESSION MANUAL DIFFERENTIAL; MONOCYTES % (MANUAL) 2 % (2-9); SEGMENTED NEUTROPHILS % 91 % (40-70)
[2021-06-20 05:11] LABS: ABG BASE EXCESS 2.8 mmol/L (-2.0-3.0); ABG HCO3 26.3 mmol/L (21.0-28.0); ABG OXYGEN SATURATION 98.2 % (95.0-99.0); ABG PCO2 36 mmHg (35-48)
[2021-06-20 05:13] LABS: MAGNESIUM 2.7 mg/dL (1.80-2.40); PHOSPHORUS 6.4 mg/dL (2.5-4.9); POTASSIUM 3.8 mmol/L (3.5-5.1)
[2021-06-20 05:52] LABS: CREATININE 10.1 mg/dL (0.5-1.5)
[2021-06-20 07:36] LABS: ABG BASE EXCESS 0.5 mmol/L (-2.0-3.0); ABG HCO3 25.8 mmol/L (21.0-28.0); ABG OXYGEN SATURATION 98.1 % (95.0-99.0); ABG PCO2 44 mmHg (35-48)
[2021-06-20 08:15] LABS: ABG BASE EXCESS 1.9 mmol/L (-2.0-3.0); ABG OXYGEN SATURATION 97.8 % (95.0-99.0); ABG PCO2 44 mmHg (35-48)
[2021-06-20] MEDS: FAMOTIDINE 20MG VIAL IV SCH (09:12)
[2021-06-20] MEDS ORDERED: PHARMACY COMMUNICATION MISC SCH (09:30)
[2021-06-20] MEDS: ASPIRIN 81MG CHEW TAB PO SCH (09:56)
[2021-06-20 15:23] LABS: ABG BASE EXCESS -2.8 mmol/L (-2.0-3.0); ABG HCO3 20.8 mmol/L (21.0-28.0); ABG OXYGEN SATURATION 98.6 % (95.0-99.0); ABG PCO2 32 mmHg (35-48)
[2021-06-20] MEDS: TRAMADOL HCL 50 MG TABLET PO PRN ×2 (15:40→16:34)
[2021-06-20 18:30] LABS: ABG BASE EXCESS -5.3 mmol/L (-2.0-3.0); ABG HCO3 19.5 mmol/L (21.0-28.0); ABG OXYGEN SATURATION 98.6 % (95.0-99.0); ABG PCO2 35 mmHg (35-48)
[2021-06-20] MEDS: ATORVASTATIN 40 MG TABLET PO SCH (21:12)
[2021-06-20] MEDS: SODIUM BICARB 50MEQ 50ML VIAL IV PRN ×2 (22:38→22:52)
[2021-06-21] VITALS (69 sets, daily range): BP systolic 94–183; BP diastolic 33–85
[2021-06-21 00:20] LABS: ABG BASE EXCESS -3.1 mmol/L (-2.0-3.0); ABG HCO3 21.7 mmol/L (21.0-28.0); ABG OXYGEN SATURATION 95.5 % (95.0-99.0); ABG PCO2 38 mmHg (35-48)
[2021-06-21] MEDS: CALCIUM GLUC 1GM 1 GM in 0.9%NACL 50ML 50 ML IV PRN ×6 (01:07→18:25)
[2021-06-21] MEDS: SODIUM BICARB 50MEQ 50ML VIAL IV PRN ×5 (01:07→08:06)
[2021-06-21] MEDS: EPINEPHRINE PF 1MG AMP 10 MG in 0.9% NACL 250ML 240 ML IV PRN (03:02)
[2021-06-21 04:26] LABS: MEAN CORPUSCULAR HEMOGLOBIN 30.1 pg (27.0-33.0); MEAN CORPUSCULAR HGB CONC 32.3 g/dL (32.0-36.0); MEAN CORPUSCULAR VOLUME 93.4 fL (79-99); PLATELET COUNT (AUTO) 134 K/uL (130-400); RED BLOOD CELL COUNT(AUTO) 3.32 MIL/uL (4.50-6.20); RED CELL DISTRIBUTION WIDTH 16.1 % (11.0-15.5); WHITE BLOOD COUNT (AUTO) 18.5 K/uL (4.8-10.8)
[2021-06-21 04:41] LABS: ALBUMIN 2.3 g/dL (3.5-5.0); BILIRUBIN,TOTAL 0.6 mg/dL (0.2-1.0); CREATININE 6.6 mg/dL (0.5-1.5); MAGNESIUM 2.3 mg/dL (1.80-2.40); PHOSPHORUS 7.5 mg/dL (2.5-4.9); POTASSIUM 4.7 mmol/L (3.5-5.1); TOTAL PROTEIN, SERUM 6.1 g/dL (6.0-8.3)
[2021-06-21 05:14] LABS: ABG BASE EXCESS -3.5 mmol/L (-2.0-3.0); ABG HCO3 21.1 mmol/L (21.0-28.0); ABG OXYGEN SATURATION 96.5 % (95.0-99.0); ABG PCO2 36 mmHg (35-48)
[2021-06-21 06:45] LABS: ABG BASE EXCESS -2.9 mmol/L (-2.0-3.0); ABG HCO3 21.6 mmol/L (21.0-28.0); ABG OXYGEN SATURATION 95.8 % (95.0-99.0); ABG PCO2 37 mmHg (35-48)
[2021-06-21 06:57] LABS: LYMPHOCYTES % (MANUAL) 2 % (22-44); MAN.DIFF COMMENT-IMPRESSION MANUAL DIFFERENTIAL; MONOCYTES % (MANUAL) 4 % (2-9); PLATELET MORPHOLOGY COMMENT ADEQUATE; SEGMENTED NEUTROPHILS % 94 % (40-70)
[2021-06-21] MEDS: FAMOTIDINE 20MG VIAL IV SCH (08:07)
[2021-06-21] MEDS: ASPIRIN 81MG CHEW TAB PO SCH (08:07)
[2021-06-21 09:22] LABS: ABG HCO3 25.6 mmol/L (21.0-28.0); ABG OXYGEN SATURATION 96.4 % (95.0-99.0); ABG PCO2 40 mmHg (35-48)
[2021-06-21] MEDS: INSULIN HUMULIN R 100 UNIT/ML 3ML SQ SCH ×3 (11:31→20:08)
[2021-06-21 13:12] LABS: ABG BASE EXCESS 0.3 mmol/L (-2.0-3.0); ABG HCO3 25.3 mmol/L (21.0-28.0); ABG OXYGEN SATURATION 95.6 % (95.0-99.0); ABG PCO2 42 mmHg (35-48)
[2021-06-21 14:13] LABS: THYROID STIMULATING HORMONE 2.57 uIU/mL (0.36-3.74)
[2021-06-21 17:06] LABS: ABG BASE EXCESS 3.6 mmol/L (-2.0-3.0); ABG HCO3 28.5 mmol/L (21.0-28.0); ABG OXYGEN SATURATION 59.3 % (95.0-99.0); ABG PCO2 45 mmHg (35-48)
[2021-06-21] MEDS: 0.9%NACL 1000ML 1,000 ML IV PRN (17:19)
[2021-06-21 17:37] LABS: ABG BASE EXCESS 3.4 mmol/L (-2.0-3.0); ABG HCO3 27.6 mmol/L (21.0-28.0); ABG OXYGEN SATURATION 96.8 % (95.0-99.0); ABG PCO2 41 mmHg (35-48)
[2021-06-21] MEDS: HEPARIN 5,000 UNIT VIAL IV SCH (18:35)
[2021-06-21] MEDS: ATORVASTATIN 40 MG TABLET PO SCH (20:08)
[2021-06-21 21:29] LABS: ABG HCO3 28.2 mmol/L (21.0-28.0); ABG OXYGEN SATURATION 97.5 % (95.0-99.0); ABG PCO2 41 mmHg (35-48)
[2021-06-22] VITALS (46 sets, daily range): BP systolic 105–174; BP diastolic 30–69
[2021-06-22 02:54] LABS: ABG BASE EXCESS 4.1 mmol/L (-2.0-3.0); ABG HCO3 28.2 mmol/L (21.0-28.0); ABG OXYGEN SATURATION 96.8 % (95.0-99.0); ABG PCO2 41 mmHg (35-48)
[2021-06-22 04:27] LABS: HEMATOCRIT 28.8 % (42-54); MEAN CORPUSCULAR HEMOGLOBIN 29.7 pg (27.0-33.0); MEAN CORPUSCULAR HGB CONC 31.6 g/dL (32.0-36.0); MEAN CORPUSCULAR VOLUME 94.1 fL (79-99); RED BLOOD CELL COUNT(AUTO) 3.06 MIL/uL (4.50-6.20); RED CELL DISTRIBUTION WIDTH 15.8 % (11.0-15.5)
[2021-06-22 04:39] LABS: CREATININE 5.1 mg/dL (0.5-1.5); POTASSIUM 4.2 mmol/L (3.5-5.1)
[2021-06-22 06:15] LABS: ABG BASE EXCESS 2.6 mmol/L (-2.0-3.0); ABG OXYGEN SATURATION 94.5 % (95.0-99.0); ABG PCO2 41 mmHg (35-48)
[2021-06-22] MEDS: INSULIN HUMULIN R 100 UNIT/ML 3ML SQ SCH ×4 (06:31→21:00)
[2021-06-22] MEDS: ASPIRIN 81MG CHEW TAB PO SCH ×2 (09:23→13:27)
[2021-06-22] MEDS: FAMOTIDINE 20MG VIAL IV SCH (09:23)
[2021-06-22] MEDS: CARVEDILOL 3.125 MG TABLET PO SCH ×2 (13:00→21:00)
[2021-06-22 13:15] LABS: ABG BASE EXCESS 0.8 mmol/L (-2.0-3.0); ABG HCO3 25.1 mmol/L (21.0-28.0); ABG OXYGEN SATURATION 88.8 % (95.0-99.0); ABG PCO2 39 mmHg (35-48)
[2021-06-22] MEDS: MIDODRINE HCL 5 MG TABLET PO SCH ×2 (13:27→22:13)
[2021-06-22] MEDS: EPINEPHRINE PF 1MG AMP 10 MG in 0.9% NACL 250ML 240 ML IV PRN (18:31)
[2021-06-22] MEDS: ATORVASTATIN 40 MG TABLET PO SCH (22:13)
[2021-06-22] MEDS: ENOXAPARIN SODIUM 30 MG/0.3 ML SQ SCH (22:46)
[2021-06-23] VITALS (35 sets, daily range): BP systolic 110–170; BP diastolic 36–94
[2021-06-23 03:41] LABS: BASOPHILS % (AUTO) 0.2 % (0.0-5.0); EOSINOPHILS % (AUTO) 0.1 % (0.0-8.0); HEMATOCRIT 27.9 % (42-54); LYMPHOCYTES % (AUTO) 1.5 % (21.0-51.0); MEAN CORPUSCULAR HEMOGLOBIN 30.1 pg (27.0-33.0); MEAN CORPUSCULAR HGB CONC 32.6 g/dL (32.0-36.0); MEAN CORPUSCULAR VOLUME 92.4 fL (79-99); MONOCYTES % (AUTO) 3.5 % (3.0-13.0); NEUTROPHILS % (AUTO) 93.7 % (40.0-77.0); PLATELET COUNT (AUTO) 122 K/uL (130-400); RED BLOOD CELL COUNT(AUTO) 3.02 MIL/uL (4.50-6.20); RED CELL DISTRIBUTION WIDTH 15.5 % (11.0-15.5); WHITE BLOOD COUNT (AUTO) 19.3 K/uL (4.8-10.8)
[2021-06-23 03:58] LABS: CREATININE 6.6 mg/dL (0.5-1.5); MAGNESIUM 2.4 mg/dL (1.80-2.40); PHOSPHORUS 5.3 mg/dL (2.5-4.9); POTASSIUM 4.2 mmol/L (3.5-5.1)
[2021-06-23 04:02] LABS: HEMOGLOBIN A1C 5.9 % (4.0-6.0)
[2021-06-23] MEDS: INSULIN HUMULIN R 100 UNIT/ML 3ML SQ SCH ×4 (06:11→21:00)
[2021-06-23] MEDS: CARVEDILOL 3.125 MG TABLET PO SCH ×2 (07:51→21:00)
[2021-06-23] MEDS: ASPIRIN 81MG CHEW TAB PO SCH (08:15)
[2021-06-23] MEDS: MIDODRINE HCL 5 MG TABLET PO SCH ×3 (08:15→21:37)
[2021-06-23] MEDS: CLOPIDOGREL 75MG TAB PO SCH (08:16)
[2021-06-23] MEDS: ENOXAPARIN SODIUM 30 MG/0.3 ML SQ SCH (08:16)
[2021-06-23] MEDS: FAMOTIDINE 20MG VIAL IV SCH (08:16)
[2021-06-23] MEDS ORDERED: AMOX/CLAV 500/125MG TAB PO SCH (09:00)
[2021-06-23] MEDS: 0.9%NACL 1000ML 1,000 ML IV PRN (10:13)
[2021-06-23] MEDS: HEPARIN 5,000 UNIT VIAL IV SCH (12:34)
[2021-06-23] MEDS ORDERED: 0.9%NACL 50ML IV SCH (18:00)
[2021-06-23] MEDS ORDERED: VANCOMYCIN PROTOCOL PER PHARMACY IV PRN (18:00)
[2021-06-23] MEDS: ZOSYN 3.375GM +NS 50ML IV SCH (18:01)
[2021-06-23] MEDS: 0.9%NACL 50ML IV SCH (18:01)
[2021-06-23] MEDS ORDERED: VANCOMYCIN 1.25GM/NS 250ML IVPB ONE ×2 (18:30)
[2021-06-23] MEDS: ATORVASTATIN 40 MG TABLET PO SCH (21:36)
[2021-06-24] VITALS (32 sets, daily range): BP systolic 74–144; BP diastolic 46–92
[2021-06-24 05:54] LABS: HEMATOCRIT 27.2 % (42-54); MEAN CORPUSCULAR HEMOGLOBIN 30.5 pg (27.0-33.0); MEAN CORPUSCULAR HGB CONC 31.6 g/dL (32.0-36.0); MEAN CORPUSCULAR VOLUME 96.5 fL (79-99); PLATELET COUNT (AUTO) 92 K/uL (130-400); RED BLOOD CELL COUNT(AUTO) 2.82 MIL/uL (4.50-6.20); RED CELL DISTRIBUTION WIDTH 15.3 % (11.0-15.5)
[2021-06-24 06:10] LABS: % IRON SATURATION 18.4 % (30-44)
[2021-06-24] MEDS: 0.9%NACL 50ML IV SCH ×2 (06:31→17:22)
[2021-06-24] MEDS: ZOSYN 3.375GM +NS 50ML IV SCH ×2 (06:32→17:21)
[2021-06-24] MEDS: INSULIN HUMULIN R 100 UNIT/ML 3ML SQ SCH ×4 (06:36→20:06)
[2021-06-24 06:44] LABS: ALBUMIN 2.1 g/dL (3.5-5.0); ASPARTATE AMINOTRANSFERASE 34 U/L (10-37); BILIRUBIN,TOTAL 0.7 mg/dL (0.2-1.0); CARBON DIOXIDE 26 mmol/L (21-32); CHLORIDE 101 mmol/L (101-111); CREATININE 5.4 mg/dL (0.5-1.5); GLOMERULAR FILTR. RATE CALC 11 mL/min (>60); GLUCOSE,RANDOM 127 mg/dL (70-105); PHOSPHORUS 4.2 mg/dL (2.5-4.9); POTASSIUM 3.8 mmol/L (3.5-5.1); SODIUM SERUM 140 mmol/L (136-145); TOTAL PROTEIN, SERUM 5.9 g/dL (6.0-8.3); UREA NITROGEN, BLOOD 46 mg/dL (7-18)
[2021-06-24 06:45] LABS: ALANINE AMINOTRANSFERASE < 6 U/L (12-78)
[2021-06-24] MEDS ORDERED: MIDODRINE HCL 5 MG TABLET PO PRN (07:30)
[2021-06-24 08:40] LABS: BAND NEUTROPHILS % (MANUAL) 1 % (0-2); LYMPHOCYTES % (MANUAL) 1 % (22-44); MAN.DIFF COMMENT-IMPRESSION MANUAL DIFFERENTIAL; MONOCYTES % (MANUAL) 2 % (2-9); PLATELET MORPHOLOGY COMMENT DECREASED; SEGMENTED NEUTROPHILS % 96 % (40-70)
[2021-06-24] MEDS: CARVEDILOL 3.125 MG TABLET PO SCH (09:00)
[2021-06-24] MEDS: ASPIRIN 81MG CHEW TAB PO SCH (10:43)
[2021-06-24] MEDS: MIDODRINE HCL 5 MG TABLET PO SCH ×3 (10:44→20:05)
[2021-06-24] MEDS: FAMOTIDINE 20MG VIAL IV SCH (10:44)
[2021-06-24] MEDS: CLOPIDOGREL 75MG TAB PO SCH (10:44)
[2021-06-24] MEDS: ENOXAPARIN SODIUM 30 MG/0.3 ML SQ SCH (10:45)
[2021-06-24] MEDS: THIAMINE HCL 100 MG/ML 2ML VIAL IVP SCH (10:46)
[2021-06-24] MEDS ORDERED: COMPOUND IV MISC 1 EACH IVSOLN MISC PRN (12:30)
[2021-06-24 13:57] LABS: HEMATOCRIT 28.2 % (42-54)
[2021-06-24] MEDS ORDERED: NOREPINEPHRINE 4MG/NS 250ML 250 ML IV SCH (14:00)
[2021-06-24 14:11] LABS: PROTHROMBIN TIME 14.8 SEC (9.6-11.6)
[2021-06-24 14:33] LABS: PARTIAL THROMBOPLASTIN TIME > 139.0 SEC (26.3-35.5)
[2021-06-24] MEDS ORDERED: ALBUMIN (HUMAN) 5% 250 ML IV SCH (15:00)
[2021-06-24 18:57] LABS: HEMATOCRIT 27.2 % (42-54)
[2021-06-24] MEDS: ATORVASTATIN 40 MG TABLET PO SCH (20:06)
[2021-06-25] VITALS (37 sets, daily range): BP systolic 87–146; BP diastolic 33–76
[2021-06-25 00:38] LABS: HEMATOCRIT 26.4 % (42-54)
[2021-06-25] MEDS: 0.9%NACL 50ML IV SCH ×2 (05:20→17:40)
[2021-06-25] MEDS: ZOSYN 3.375GM +NS 50ML IV SCH ×2 (05:20→17:40)
[2021-06-25] MEDS: INSULIN HUMULIN R 100 UNIT/ML 3ML SQ SCH ×4 (07:30→20:28)
[2021-06-25 07:42] LABS: BASOPHILS % (AUTO) 0.1 % (0.0-5.0); EOSINOPHILS % (AUTO) 0.3 % (0.0-8.0); HEMATOCRIT 25.3 % (42-54); LYMPHOCYTES % (AUTO) 1.7 % (21.0-51.0); MEAN CORPUSCULAR HEMOGLOBIN 30.2 pg (27.0-33.0); MEAN CORPUSCULAR HGB CONC 31.2 g/dL (32.0-36.0); MEAN CORPUSCULAR VOLUME 96.6 fL (79-99); MONOCYTES % (AUTO) 3.2 % (3.0-13.0); NEUTROPHILS % (AUTO) 93.6 % (40.0-77.0); PLATELET COUNT (AUTO) 110 K/uL (130-400); RED BLOOD CELL COUNT(AUTO) 2.62 MIL/uL (4.50-6.20); RED CELL DISTRIBUTION WIDTH 15.4 % (11.0-15.5); WHITE BLOOD COUNT (AUTO) 20.7 K/uL (4.8-10.8)
[2021-06-25 08:29] LABS: ALBUMIN 2.1 g/dL (3.5-5.0); BILIRUBIN,TOTAL 0.8 mg/dL (0.2-1.0); CREATININE 6.9 mg/dL (0.5-1.5); POTASSIUM 4.5 mmol/L (3.5-5.1); TOTAL PROTEIN, SERUM 5.8 g/dL (6.0-8.3)
[2021-06-25] MEDS ORDERED: MIDODRINE HCL 5 MG TABLET PO PRN (10:30)
[2021-06-25] MEDS ORDERED: OCTYL 2-CYANOACRYLATE 1 EACH TP SCH (10:30)
[2021-06-25] MEDS: CLOPIDOGREL 75MG TAB PO SCH (10:38)
[2021-06-25] MEDS: MIDODRINE HCL 5 MG TABLET PO SCH ×4 (10:38→20:41)
[2021-06-25] MEDS: FAMOTIDINE 20MG VIAL IV SCH (10:39)
[2021-06-25] MEDS: ASPIRIN 81MG CHEW TAB PO SCH (10:39)
[2021-06-25] MEDS: CEFAZOLIN SODIUM 1 GM VIAL IVP SCH ×2 (10:39→18:23)
[2021-06-25] MEDS: THIAMINE HCL 100 MG/ML 2ML VIAL IVP SCH (10:39)
[2021-06-25] MEDS: IRON SUCROSE COMPLEX 100 MG in 0.9%NACL 50ML 50 ML IV SCH (10:39)
[2021-06-25] MEDS ORDERED: RACEPINEPHRINE HCL 2.25% 0.5 ML NEB SOLN NEB SCH (14:30)
[2021-06-25 14:56] LABS: INR 1.38 (0.85-1.15); PROTHROMBIN TIME 14.6 SEC (9.6-11.6)
[2021-06-25 14:57] LABS: PARTIAL THROMBOPLASTIN TIME 40.2 SEC (26.3-35.5)
[2021-06-25] MEDS: ATORVASTATIN 40 MG TABLET PO SCH (20:41)
[2021-06-26] VITALS (35 sets, daily range): BP systolic 94–157; BP diastolic 41–99
[2021-06-26] MEDS: 0.9%NACL 10ML VIAL IVP PRN (02:06)
[2021-06-26] MEDS: CEFAZOLIN SODIUM 1 GM VIAL IVP SCH (02:06)
[2021-06-26 03:50] LABS: BASOPHILS % (AUTO) 0.2 % (0.0-5.0); EOSINOPHILS % (AUTO) 0.5 % (0.0-8.0); HEMATOCRIT 24.1 % (42-54); LYMPHOCYTES % (AUTO) 2.5 % (21.0-51.0); MEAN CORPUSCULAR HEMOGLOBIN 30.6 pg (27.0-33.0); MEAN CORPUSCULAR HGB CONC 32.4 g/dL (32.0-36.0); MEAN CORPUSCULAR VOLUME 94.5 fL (79-99); MONOCYTES % (AUTO) 3.4 % (3.0-13.0); NEUTROPHILS % (AUTO) 91.8 % (40.0-77.0); PLATELET COUNT (AUTO) 112 K/uL (130-400); RED BLOOD CELL COUNT(AUTO) 2.55 MIL/uL (4.50-6.20); RED CELL DISTRIBUTION WIDTH 15.3 % (11.0-15.5); WHITE BLOOD COUNT (AUTO) 20.2 K/uL (4.8-10.8)
[2021-06-26 04:08] LABS: ALBUMIN 2.1 g/dL (3.5-5.0); BILIRUBIN,TOTAL 0.5 mg/dL (0.2-1.0); POTASSIUM 4.2 mmol/L (3.5-5.1); TOTAL PROTEIN, SERUM 5.9 g/dL (6.0-8.3)
[2021-06-26 04:13] LABS: CREATININE 8.3 mg/dL (0.5-1.5)
[2021-06-26] MEDS: 0.9%NACL 50ML IV SCH ×2 (05:20→17:46)
[2021-06-26] MEDS: ZOSYN 3.375GM +NS 50ML IV SCH ×2 (05:20→17:46)
[2021-06-26] MEDS: INSULIN HUMULIN R 100 UNIT/ML 3ML SQ SCH ×4 (06:56→20:11)
[2021-06-26] MEDS: THIAMINE HCL 100 MG/ML 2ML VIAL IVP SCH (08:09)
[2021-06-26] MEDS: CLOPIDOGREL 75MG TAB PO SCH (08:09)
[2021-06-26] MEDS: MIDODRINE HCL 5 MG TABLET PO SCH ×3 (08:09→20:10)
[2021-06-26] MEDS: ASPIRIN 81MG CHEW TAB PO SCH (08:09)
[2021-06-26] MEDS: FAMOTIDINE 20MG VIAL IV SCH (08:09)
[2021-06-26] MEDS: IRON SUCROSE COMPLEX 100 MG in 0.9%NACL 50ML 50 ML IV SCH (09:22)
[2021-06-26] MEDS: 0.9% NACL 250ML 250 ML IV SCH (15:30)
[2021-06-26] MEDS: VANCOMYCIN 750MG VIAL IVPB SCH (15:30)
[2021-06-26] MEDS: HEPARIN 5,000 UNIT VIAL IV SCH (17:41)
[2021-06-26] MEDS: 0.9%NACL 50ML 50 ML IV SCH (20:09)
[2021-06-26] MEDS: ATORVASTATIN 40 MG TABLET PO SCH (20:10)
[2021-06-27 03:00] VITALS: BP 134/74
[2021-06-27] MEDS: ZOSYN 3.375GM +NS 50ML IV SCH ×2 (05:12→20:35)
[2021-06-27] MEDS: 0.9%NACL 50ML 50 ML IV SCH ×2 (05:13→20:35)
[2021-06-27] MEDS: INSULIN HUMULIN R 100 UNIT/ML 3ML SQ SCH ×4 (06:37→20:35)
[2021-06-27 07:12] LABS: HEMATOCRIT 23.2 % (42-54); MEAN CORPUSCULAR HEMOGLOBIN 30.2 pg (27.0-33.0); MEAN CORPUSCULAR HGB CONC 32.3 g/dL (32.0-36.0); MEAN CORPUSCULAR VOLUME 93.5 fL (79-99); RED BLOOD CELL COUNT(AUTO) 2.48 MIL/uL (4.50-6.20); WHITE BLOOD COUNT (AUTO) 8.1 K/uL (4.8-10.8)
[2021-06-27 07:20] VITALS: BP 123/94
[2021-06-27 07:31] LABS: CREATININE 5.5 mg/dL (0.5-1.5); MAGNESIUM 2.2 mg/dL (1.80-2.40); PHOSPHORUS 4.7 mg/dL (2.5-4.9); POTASSIUM 3.7 mmol/L (3.5-5.1)
[2021-06-27] MEDS: IRON SUCROSE COMPLEX 100 MG in 0.9%NACL 50ML 50 ML IV SCH (09:00)
[2021-06-27] MEDS: THIAMINE HCL 100 MG/ML 2ML VIAL IVP SCH (09:00)
[2021-06-27] MEDS: ASPIRIN 81MG CHEW TAB PO SCH (09:03)
[2021-06-27] MEDS: MIDODRINE HCL 5 MG TABLET PO SCH ×3 (09:03→20:35)
[2021-06-27] MEDS: FAMOTIDINE 20MG TAB PO SCH (09:03)
[2021-06-27 11:25] VITALS: BP 152/47
[2021-06-27 15:00] VITALS: BP 164/74
[2021-06-27 19:41] VITALS: BP 145/40
[2021-06-27] MEDS: ATORVASTATIN 40 MG TABLET PO SCH (20:35)
[2021-06-27] MEDS ORDERED: EPOETIN ALFA-EPBX (ESRD) 10,000 UNIT/ML VIAL SQ SCH (21:00)
[2021-06-28] VITALS (21 sets, daily range): BP systolic 90–169; BP diastolic 40–90
[2021-06-28 05:29] LABS: HEMATOCRIT 24.1 % (42-54); MEAN CORPUSCULAR HEMOGLOBIN 30.2 pg (27.0-33.0); MEAN CORPUSCULAR VOLUME 94.5 fL (79-99); RED BLOOD CELL COUNT(AUTO) 2.55 MIL/uL (4.50-6.20); WHITE BLOOD COUNT (AUTO) 6.5 K/uL (4.8-10.8)
[2021-06-28] MEDS: INSULIN HUMULIN R 100 UNIT/ML 3ML SQ SCH ×4 (05:41→21:00)
[2021-06-28 05:42] LABS: POTASSIUM 3.6 mmol/L (3.5-5.1)
[2021-06-28] MEDS: ZOSYN 3.375GM +NS 50ML IV SCH (07:17)
[2021-06-28] MEDS: IRON SUCROSE COMPLEX 100 MG in 0.9%NACL 50ML 50 ML IV SCH (07:18)
[2021-06-28] MEDS: ASPIRIN 81MG CHEW TAB PO SCH (07:18)
[2021-06-28] MEDS: THIAMINE HCL 100 MG/ML 2ML VIAL IVP SCH (07:18)
[2021-06-28] MEDS: 0.9%NACL 50ML 50 ML IV SCH ×2 (07:18→21:00)
[2021-06-28] MEDS: FAMOTIDINE 20MG TAB PO SCH (07:19)
[2021-06-28] MEDS: ENOXAPARIN SODIUM 30 MG/0.3 ML SQ SCH (08:37)
[2021-06-28] MEDS: 0.9%NACL 1000ML 1,000 ML IV PRN (10:51)
[2021-06-28] MEDS: VANCOMYCIN 750MG VIAL IVPB SCH (12:04)
[2021-06-28] MEDS: 0.9% NACL 250ML 250 ML IV SCH (12:04)
[2021-06-28] MEDS: MIDODRINE HCL 5 MG TABLET PO SCH ×2 (12:35→21:40)
[2021-06-28] MEDS: HEPARIN 5,000 UNIT VIAL IV SCH (12:55)
[2021-06-28] MEDS: ATORVASTATIN 40 MG TABLET PO SCH (21:40)
[2021-06-28] MEDS: HYDROXYZINE 25 MG TABLET PO SCH (21:40)
[2021-06-28] MEDS: CEFTAZIDIME PENTAHYDRATE 1 GM/VIAL IV SCH (21:41)
[2021-06-28] MEDS: EPOETIN ALFA-EPBX (ESRD) 10,000 UNIT/ML VIAL SQ SCH (21:41)
[2021-06-29 03:30] VITALS: BP 103/66
[2021-06-29 05:18] LABS: CREATININE 4.9 mg/dL (0.5-1.5); PHOSPHORUS 4.2 mg/dL (2.5-4.9); POTASSIUM 3.6 mmol/L (3.5-5.1)
[2021-06-29 06:22] LABS: MEAN CORPUSCULAR HEMOGLOBIN 29.5 pg (27.0-33.0); MEAN CORPUSCULAR HGB CONC 32.1 g/dL (32.0-36.0); RED BLOOD CELL COUNT(AUTO) 2.61 MIL/uL (4.50-6.20); RED CELL DISTRIBUTION WIDTH 14.7 % (11.0-15.5); WHITE BLOOD COUNT (AUTO) 6.1 K/uL (4.8-10.8)
[2021-06-29] MEDS: CEFTAZIDIME PENTAHYDRATE 1 GM/VIAL IV SCH (07:09)
[2021-06-29] MEDS: INSULIN HUMULIN R 100 UNIT/ML 3ML SQ SCH ×4 (07:09→21:00)
[2021-06-29] MEDS: 0.9%NACL 50ML 50 ML IV SCH (07:10)
[2021-06-29 07:41] VITALS: BP 134/90
[2021-06-29] MEDS: HYDROXYZINE 25 MG TABLET PO SCH ×3 (07:42→20:24)
[2021-06-29] MEDS: MEMANTINE HCL 5 MG TABLET PO SCH (07:42)
[2021-06-29] MEDS: MIDODRINE HCL 5 MG TABLET PO SCH ×3 (07:42→20:24)
[2021-06-29] MEDS: THIAMINE HCL 100 MG/ML 2ML VIAL IVP SCH (07:42)
[2021-06-29] MEDS: FAMOTIDINE 20MG TAB PO SCH (07:42)
[2021-06-29] MEDS: CITALOPRAM 20 MG TABLET PO SCH (07:42)
[2021-06-29] MEDS: ASPIRIN 81MG CHEW TAB PO SCH (07:42)
[2021-06-29] MEDS: ENOXAPARIN SODIUM 30 MG/0.3 ML SQ SCH (07:43)
[2021-06-29] MEDS: IRON SUCROSE COMPLEX 100 MG in 0.9%NACL 50ML 50 ML IV SCH (07:43)
[2021-06-29 11:58] VITALS: BP 99/74
[2021-06-29 16:00] VITALS: BP 123/77
[2021-06-29] MEDS: ATORVASTATIN 40 MG TABLET PO SCH (20:24)
[2021-06-29 21:34] VITALS: BP 94/62
[2021-06-29 23:57] VITALS: BP 98/57
[2021-06-30] VITALS (20 sets, daily range): BP systolic 84–158; BP diastolic 61–99
[2021-06-30 04:23] LABS: MEAN CORPUSCULAR HEMOGLOBIN 30.3 pg (27.0-33.0); MEAN CORPUSCULAR HGB CONC 32.9 g/dL (32.0-36.0); RED BLOOD CELL COUNT(AUTO) 2.61 MIL/uL (4.50-6.20); RED CELL DISTRIBUTION WIDTH 14.8 % (11.0-15.5); WHITE BLOOD COUNT (AUTO) 6.1 K/uL (4.8-10.8)
[2021-06-30 04:39] LABS: ALBUMIN 2.2 g/dL (3.5-5.0); ASPARTATE AMINOTRANSFERASE 22 U/L (10-37); BILIRUBIN,TOTAL 0.6 mg/dL (0.2-1.0); CHLORIDE 102 mmol/L (101-111); CREATININE 6.3 mg/dL (0.5-1.5); GLOMERULAR FILTR. RATE CALC 9 mL/min (>60); GLUCOSE,RANDOM 136 mg/dL (70-105); PHOSPHORUS 5.1 mg/dL (2.5-4.9); POTASSIUM 3.7 mmol/L (3.5-5.1); SODIUM SERUM 139 mmol/L (136-145); TOTAL PROTEIN, SERUM 6.2 g/dL (6.0-8.3); UREA NITROGEN, BLOOD 38 mg/dL (7-18)
[2021-06-30 04:48] LABS: ALANINE AMINOTRANSFERASE < 6 U/L (12-78)
[2021-06-30 04:50] LABS: CARBON DIOXIDE 24 mmol/L (21-32)
[2021-06-30] MEDS: INSULIN HUMULIN R 100 UNIT/ML 3ML SQ SCH ×4 (07:30→20:22)
[2021-06-30] MEDS: ENOXAPARIN SODIUM 30 MG/0.3 ML SQ SCH (09:00)
[2021-06-30] MEDS: Vitamin B Complex/Vit C/Folic Acid PO SCH (10:00)
[2021-06-30] MEDS: HYDROXYZINE 25 MG TABLET PO SCH ×3 (10:00→20:29)
[2021-06-30] MEDS: FAMOTIDINE 20MG TAB PO SCH (10:00)
[2021-06-30] MEDS: MEMANTINE HCL 5 MG TABLET PO SCH (10:00)
[2021-06-30] MEDS: MIDODRINE HCL 5 MG TABLET PO SCH ×3 (10:00→20:29)
[2021-06-30] MEDS: CITALOPRAM 20 MG TABLET PO SCH (10:00)
[2021-06-30] MEDS: ASPIRIN 81MG CHEW TAB PO SCH (10:00)
[2021-06-30] MEDS: THIAMINE HCL 100 MG/ML 2ML VIAL IVP SCH (10:01)
[2021-06-30] MEDS: IRON SUCROSE COMPLEX 100 MG in 0.9%NACL 50ML 50 ML IV SCH (10:03)
[2021-06-30] MEDS: VANCOMYCIN 750MG VIAL IVPB SCH (16:01)
[2021-06-30] MEDS: 0.9% NACL 250ML 250 ML IV SCH (16:01)
[2021-06-30] MEDS: 0.9%NACL 1000ML 1,000 ML IV PRN (17:20)
[2021-06-30] MEDS: ATORVASTATIN 40 MG TABLET PO SCH (20:29)
[2021-06-30] MEDS: EPOETIN ALFA-EPBX (ESRD) 10,000 UNIT/ML VIAL SQ SCH (20:29)
[2021-06-30] MEDS: CEFTAZIDIME PENTAHYDRATE 1 GM/VIAL IV SCH (20:29)
[2021-07-01 03:56] VITALS: BP 97/78
[2021-07-01] MEDS: INSULIN HUMULIN R 100 UNIT/ML 3ML SQ SCH ×3 (06:21→16:30)
[2021-07-01 07:55] VITALS: BP 98/56
[2021-07-01] MEDS: HYDROXYZINE 25 MG TABLET PO SCH (09:45)
[2021-07-01] MEDS: MIDODRINE HCL 5 MG TABLET PO SCH ×2 (09:45→14:00)
[2021-07-01] MEDS: Vitamin B Complex/Vit C/Folic Acid PO SCH (09:45)
[2021-07-01] MEDS: ASPIRIN 81MG CHEW TAB PO SCH (09:45)
[2021-07-01] MEDS: CITALOPRAM 20 MG TABLET PO SCH (09:45)
[2021-07-01] MEDS: MEMANTINE HCL 5 MG TABLET PO SCH (09:46)
[2021-07-01] MEDS: THIAMINE HCL 100 MG/ML 2ML VIAL IVP SCH (09:46)
[2021-07-01] MEDS: FAMOTIDINE 20MG TAB PO SCH (09:46)
[2021-07-01] MEDS: ENOXAPARIN SODIUM 30 MG/0.3 ML SQ SCH (09:50)
[2021-07-01 11:30] VITALS: BP 174/73
[2021-07-01] MEDS: IRON SUCROSE COMPLEX 100 MG in 0.9%NACL 50ML 50 ML IV SCH (13:49)
[2021-07-01 15:50] VITALS: BP 133/106
== END 2021-07-01 18:18 | DRG 233 ==
LOC: EDH 09:17 → OBSVTOIN 12:41 → EDHIP 12:41 → 4BH 23:01 → 2CH 06-19 20:42 → 4DH 06-26 18:10 → 4CH 06-28 00:18
PROVIDERS: ADMIT Internal Medicine; ATTEND Internal Medicine
PROC: 5A1D70Z Performance of Urinary Filtration, Intermittent, Less than 6 Hours Per Day (ICD-10-PCS; 2021-06-14)
PROC: 4A023N7 Measurement of Cardiac Sampling and Pressure, Left Heart, Percutaneous Approach (ICD-10-PCS; 2021-06-15)
PROC: B2111ZZ Fluoroscopy of Multiple Coronary Arteries using Low Osmolar Contrast (ICD-10-PCS; 2021-06-15)
PROC: B2151ZZ Fluoroscopy of Left Heart using Low Osmolar Contrast (ICD-10-PCS; 2021-06-15)
PROC: 5A1D70Z Performance of Urinary Filtration, Intermittent, Less than 6 Hours Per Day (ICD-10-PCS; 2021-06-16)
PROC: 06BQ4ZZ Excision of Left Saphenous Vein, Percutaneous Endoscopic Approach (ICD-10-PCS; 2021-06-19)
PROC: 30233R1 Transfusion of Nonautologous Platelets into Peripheral Vein, Percutaneous Approach (ICD-10-PCS; 2021-06-19)
PROC: 30233N1 Transfusion of Nonautologous Red Blood Cells into Peripheral Vein, Percutaneous Approach (ICD-10-PCS; 2021-06-19)
PROC: 5A1221Z Performance of Cardiac Output, Continuous (ICD-10-PCS; 2021-06-19)
PROC: 02100Z9 Bypass Coronary Artery, One Artery from Left Internal Mammary, Open Approach (ICD-10-PCS; principal; 2021-06-19 15:50)
PROC: 021009W Bypass Coronary Artery, One Artery from Aorta with Autologous Venous Tissue, Open Approach (ICD-10-PCS; 2021-06-19 15:50)
PROC: 5A1D70Z Performance of Urinary Filtration, Intermittent, Less than 6 Hours Per Day (ICD-10-PCS; 2021-06-20)
PROC: 5A1D70Z Performance of Urinary Filtration, Intermittent, Less than 6 Hours Per Day (ICD-10-PCS; 2021-06-21)
PROC: 5A1D70Z Performance of Urinary Filtration, Intermittent, Less than 6 Hours Per Day (ICD-10-PCS; 2021-06-23)
PROC: 5A1D70Z Performance of Urinary Filtration, Intermittent, Less than 6 Hours Per Day (ICD-10-PCS; 2021-06-26)
PROC: 5A1D70Z Performance of Urinary Filtration, Intermittent, Less than 6 Hours Per Day (ICD-10-PCS; 2021-06-28)
PROC: 5A1D70Z Performance of Urinary Filtration, Intermittent, Less than 6 Hours Per Day (ICD-10-PCS; 2021-06-30)
PROC: 0JBP0ZZ Excision of Left Lower Leg Subcutaneous Tissue and Fascia, Open Approach (ICD-10-PCS; 2021-07-01)
DX: I21.4 Non-ST elevation (NSTEMI) myocardial infarction (principal); N18.6 End stage renal disease; I50.43 Acute on chronic combined systolic (congestive) and diastolic (congestive) heart failure; J95.1 Acute pulmonary insufficiency following thoracic surgery; I97.820 Postprocedural cerebrovascular infarction following cardiac surgery; I13.2 Hypertensive heart and chronic kidney disease with heart failure and with stage 5 chronic kidney disease, or end stage renal disease; G93.49 Other encephalopathy; E10.52 Type 1 diabetes mellitus with diabetic peripheral angiopathy with gangrene; F05 Delirium due to known physiological condition; L03.116 Cellulitis of left lower limb; L97.429 Non-pressure chronic ulcer of left heel and midfoot with unspecified severity; M62.82 Rhabdomyolysis; R47.01 Aphasia; D69.6 Thrombocytopenia, unspecified; E10.22 Type 1 diabetes mellitus with diabetic chronic kidney disease; I25.10 Atherosclerotic heart disease of native coronary artery without angina pectoris; E78.5 Hyperlipidemia, unspecified; D64.9 Anemia, unspecified; E10.41 Type 1 diabetes mellitus with diabetic mononeuropathy; E10.621 Type 1 diabetes mellitus with foot ulcer; E66.9 Obesity, unspecified; E78.00 Pure hypercholesterolemia, unspecified; F03.90 Unspecified dementia, unspecified severity, without behavioral disturbance, psychotic disturbance, mood disturbance, and anxiety; F41.9 Anxiety disorder, unspecified; H54.7 Unspecified visual loss; I25.5 Ischemic cardiomyopathy; I95.1 Orthostatic hypotension; I95.81 Postprocedural hypotension; L97.519 Non-pressure chronic ulcer of other part of right foot with unspecified severity; L97.529 Non-pressure chronic ulcer of other part of left foot with unspecified severity; R13.10 Dysphagia, unspecified; R29.810 Facial weakness; Z68.20 Body mass index [BMI] 20.0-20.9, adult; Z74.01 Bed confinement status; Z99.2 Dependence on renal dialysis; Z79.02 Long term (current) use of antithrombotics/antiplatelets; Z79.4 Long term (current) use of insulin; Z79.82 Long term (current) use of aspirin; Z79.899 Other long term (current) drug therapy; Z91.19 Patient's noncompliance with other medical treatment and regimen; Z91.15 Patient's noncompliance with renal dialysis; Z90.49 Acquired absence of other specified parts of digestive tract; Z89.431 Acquired absence of right foot; Z83.3 Family history of diabetes mellitus; Z82.49 Family history of ischemic heart disease and other diseases of the circulatory system; Y83.8 Other surgical procedures as the cause of abnormal reaction of the patient, or of later complication, without mention of misadventure at the time of the procedure; Y92.89 Other specified places as the place of occurrence of the external cause; Z20.822 Contact with and (suspected) exposure to COVID-19
CPT/HCPCS: 36415; 70450; 70486; 70551; 71045; 73521; 73630; 73718; 74230; 76882; 78452; 80048; 80053; 80061; 80202; 82140; 82330; 82435; 82550; 82607; 82746; 82803; 82947; 82948; 83036; 83540; 83550; 83605; 83735; 83874; 84100; 84132; 84145; 84295; 84443; 84484; 85014; 85018; 85025; 85027; 85045; 85610; 85730; 86704; 86706; 86850; 86900; 86901; 86923; 87040; 87070; 87076; 87077; 87186; 87340; 87635; 90935; 92526; 92610; 92611; 93005; 93017; 93306; 93308; 93356; 93458; 93880; 93926; 94002; 94003; 94150; 95819; 96374; 97039; A7048; A9500; C1751; C1760; C1894; C9803; G0378; J0171; J0282; J0461; J0610; J0690; J0696; J0713; J1644; J1650; J1756; J1815; J2001; J2150; J2270; J2370; J2405; J2440; J2543; J2704; J2720; J2785; J3010; J3370; J3411; J3475; J3490; J7030; J7040; J7050; J7060; J7070; J7120; P9016; P9034; P9045; Q9967